=== PATIENT | female | born 1970 | race Caucasian/White ===

== ENCOUNTER 2020-11-07 05:12 | Emergency (ER) | payer BC, SELFPAY ==
[2020-11-07 05:13] VITALS: BP 154/94; PULSE 82; RESP 16; TEMP 36.6; O2SAT 97; BMI 17.4
--- NOTE | 2020-11-07 05:24 | XR_ITS ---
PROCEDURE INFORMATION: Exam: XR Right Ribs with PA Chest Exam date and time: 11/07/2020 5:24 AM Age: 50 years old Clinical indication: Injury or trauma; Other: Stretched across console of her truck and now RT rib pain; Rib area; Sprain or strain; Injury date: 11/07/2020; Injury details: Stretched across console of her truck and now having RT rib pain TECHNIQUE: Imaging protocol: XR Right ribs with PA chest. Views: 3 views COMPARISON: No relevant prior studies available. FINDINGS: Lungs: Unremarkable. No consolidation. There is no focal mass. Pleural spaces: There is no pneumothorax. There is no pleural effusion. Heart/Mediastinum: Unremarkable. No cardiomegaly. Bones/joints: ThisThere is no fracture present. IMPRESSION: 1. There is no significant traumatic injury to the chest. 2. No acute cardiac or pulmonary process.
--- NOTE | 2020-11-07 06:18 | HMH.EDGENADL ---
ED Disposition Clinical Impression: Acute costochondritis Disposition: Home, Self-Care Condition on Discharge: Good Instructions: DI for Rib Contusion Additional Instructions: pt with rib pain Prescriptions: predniSONE [Prednisone 20mg Tab] 20 mg PO BID #10 tab Transmission Status: Pending to [facility] #[id number] Ketorolac Tromethamine [Toradol 10mg tablet] 10 mg PO Q6HP PRN #10 tab MDD 40mg/day PRN Reason: Moderate To Severe Pain Transmission Status: Pending to [facility] #[id number] Referrals: Provider,Referral, [Primary Care Provider] - - Critical Care Critical Care Time: No Attestation: On 11/07/20, the high probability of a clinically significant, sudden or life threatening deterioration of the following system(s) required my full and direct attention, intervention and personal management. The time I documented below is in addition to time spent performing reported procedures but includes the following listed in this critical care notation. Medical Decision Making - Medical Records Medical records reviewed: Yes: I reviewed the patient's medical records. - Tom Inquiry Pt receiving controlled substance: No Vital Signs: 11/07/20 05:13 Temperature 97.8 F Temperature Source Oral Pulse Rate [Right] 82 Respiratory Rate 16 Blood Pressure [Right Arm] 154/94 H Blood Pressure Mean [Right Arm] 114 02 Sat by Pulse Oximetry 97 Orders (Tests/Meds): ED MEDICATIONS Discontinued Medications Generic Name Dose Route Start Last Admin Trade Name Freq PRN Reason Stop Dose Admin Ketorolac Tromethamine 60 mg 11/07/20 05:27 11/07/20 05:42 Ketorolac 60mg/2ml Vial IM 11/07/20 05:28 60 mg ONCE ONE Administration Methylprednisolone Sodium Succinate 125 mg 11/07/20 05:27 11/07/20 05:42 Methylprednisolone Sod Succ 125mg Vial IM 11/07/20 05:28 125 mg ONCE ONE Administration - Radiology Data #1 Image(s): Chest Image Reviewed: Yes I reviewed the patient's radiology image Preliminary Findings: Normal/NAD - CT Data CT Scan: Chest Time Received: 08:[address] Reviewed: Yes: I have viewed the radiologist's interpretation Preliminary Findings: Normal/NAD Medical Decision Narrative: no fx seen General Adult HPI - General Chief complaint: PAIN Stated complaint: Right rib cage pain Time Seen by Provider: 11/07/20 05:50 Mode of Arrival: Ambulatory Source of Information: Patient, Spouse, Medical Record Limitations: No Limitations Description of Symptoms (Recalled from ER Triage Doc. by RN): pt states leaned over truck console yesterday morning and felt a pop. pt c/o rt rib pain - History of Present Illness HPI narrative: pt with rt rib pain after leaning over console - hear popping - increased with mov Onset (ago): day(s) Location: chest Severity: moderate Associated symptoms: denies other symptoms Treatments prior to arrival: none - Related Data Previous Rx's Medication Instructions Recorded Ketorolac Tromethamine [Toradol 10 mg PO Q6HP PRN #10 tab MDD 11/07/20 10mg tablet] 40mg/day predniSONE [Prednisone 20mg 20 mg PO BID #10 tab 11/07/20 Tab] Allergies Allergy/AdvReac Type Severity Reaction Status Date / Time acetaminophen [From Tylenol] AdvReac Verified 11/07/20 05:27 EGGS (FOOD) AdvReac Severe ABD PAIN, Uncoded 04/19/17 14:54 BLOATING [facility] History - Hepatitis A Screen Drug use history?: No High risk sexual behaviors?: No History of sexually transmitted infection?: No Currently employed?: No Childcare worker?: No Do you have indoor plumbing?: Yes Do you have electricity?: Yes Attestation statement:: This patient has been screened for Hepatitis A risk factors. I have reviewed the patient's past medical history: Yes Comment: Seen in this emergency department 10/19/[address] head negative. Treated with intravenous Compazine, Solu-Medrol, and Zofran. Seen in this emergency de
--- NOTE | 2020-11-07 06:50 | CT_ITS ---
PROCEDURE INFORMATION: Exam: CT Chest Without Contrast; Diagnostic Exam date and time: 11/07/2020 6:50 AM Age: 50 years old Clinical indication: Pain; Right-sided; Additional info: Right anterior rib pain directly under right breast TECHNIQUE: Imaging protocol: Diagnostic computed tomography of the chest without contrast. Radiation optimization: All CT scans at this facility use at least one of these dose optimization techniques: automated exposure control; mA and/or kV adjustment per patient size (includes targeted exams where dose is matched to clinical indication); or iterative reconstruction. COMPARISON: CR XR RIBS RT MIN 3V W CXR1V 11/07/2020 5:26 AM FINDINGS: Lungs: Moderate to severe diffuse emphysematous changes. Pleural spaces: Unremarkable. No pneumothorax. No pleural effusion. Heart: Unremarkable. No cardiomegaly. No pericardial effusion. Mediastinal space: There no mediastinal hematoma. Aorta: Unremarkable. No aortic aneurysm. Lymph nodes: Unremarkable. No enlarged lymph nodes. Bones/joints: Unremarkable. No acute fracture. Soft tissues: Unremarkable. IMPRESSION: 1. There is no acute traumatic injury seen. 2. No acute cardiac or pulmonary process. 3. Moderate to severe diffuse emphysematous changes.
[2020-11-07 08:49] VITALS: BP 125/74; PULSE 78; RESP 16; TEMP 36.6; O2SAT 98
== END 2020-11-07 08:54 | disposition home or self-care (01) ==
PROVIDERS: Emergency Provider Emergency Medicine
DX: M94.0 Chondrocostal junction syndrome [Tietze] (principal); F17.210 Nicotine dependence, cigarettes, uncomplicated
CPT/HCPCS: 71101; 71250; 96372; 99281; 99282

== ENCOUNTER 2021-08-27 13:48 | Emergency (ER) | payer BC, SELFPAY ==
[2021-08-27 13:49] VITALS: BP 139/80; PULSE 83; RESP 16; TEMP 36.6; O2SAT 98; BMI 18.3
--- NOTE | 2021-08-27 14:00 | PC.NURSE ---
ANCELMO HERNANDEZ at
--- NOTE | 2021-08-27 14:05 | HMH.EDHA ---
ED Disposition Clinical Impression: Migraine Qualifiers: Migraine type: unspecified Status migrainosus presence: without status migrainosus Intractability: not intractable Qualified Code(s): G43.909 - Migraine, unspecified, not intractable, without status migrainosus Disposition: Home, Self-Care Condition on Discharge: Good Instructions: DI for Migraine Prescriptions: Prochlorperazine Maleate [Compazine 10mg tablet] 10 mg PO Q8 PRN #30 tab PRN Reason: Migraine Headache Transmission Status: Received by [email or web address] #[id number] Referrals: Provider,Referral, [Primary Care Provider] - - Critical Care Critical Care Time: No Attestation: On 08/27/21, the high probability of a clinically significant, sudden or life threatening deterioration of the following system(s) required my full and direct attention, intervention and personal management. The time I documented below is in addition to time spent performing reported procedures but includes the following listed in this critical care notation. Medical Decision Making - Medical Records Medical records reviewed: Yes: I reviewed the patient's medical records. - Tom Inquiry Pt receiving controlled substance: No Vital Signs: 08/27/21 13:49 08/27/21 14:30 08/27/21 15:13 Temperature 97.8 F 97.8 F Temperature Source Oral Pulse Rate 69 69 Pulse Rate [Right Radial] 83 Respiratory Rate 16 16 16 Blood Pressure 149/86 H 149/86 H Blood Pressure [Right Arm] 139/80 Blood Pressure Mean 107 Blood Pressure Mean [Right Arm] 99 Blood Pressure Source [Right Arm] Automatic Cuff Blood Pressure Position [Right Arm] Sitting 02 Sat by Pulse Oximetry 98 98 Oxygen Delivery Method Room Air Room Air Room Air Orders (Tests/Meds): ED MEDICATIONS Discontinued Medications Generic Name Dose Route Start Last Admin Trade Name Freq PRN Reason Stop Dose Admin Lactated Ringer's 1,000 mls @ 999 mls/hr 08/27/21 14:15 08/27/21 14:22 Lactated Ringer's 1000 Ml Bag IV 08/27/21 15:15 999 mls/hr .Q1H1M MICHAEL Administration Ketorolac Tromethamine 15 mg 08/27/21 14:03 08/27/21 14:21 Ketorolac 30mg/Ml Vial IV 08/27/21 14:04 15 mg ONCE ONE Administration Metoclopramide HCl 10 mg 08/27/21 14:03 08/27/21 14:21 Metoclopramide Hcl 10mg/2ml Vial IVP 08/27/21 14:04 10 mg ONCE ONE Administration Ondansetron HCl 8 mg 08/27/21 14:03 08/27/21 14:21 Ondansetron 4mg/2ml Vial IV 08/27/21 14:04 8 mg ONCE ONE Administration Sumatriptan Succinate 6 mg 08/27/21 14:04 08/27/21 14:22 Sumatriptan 6mg/0.5ml Vial SQ 08/27/21 14:05 6 mg ONCE ONE Administration Medical Decision Narrative: 3pm reval, appears well, esperanza po, feels better, ok with plan to f/u pcp Headache HPI - General Chief Complaint: Headache Stated Complaint: nausea, vomiting, migraine, diarrhea, chills Time Seen by Provider: 08/27/21 14:00 Mode of Arrival: Ambulatory Limitations: No Limitations Description of Symptoms (Recalled from ER Triage Doc. by RN): Pt reports migraine that she woke up with this morning. Pt reports vomitting multiple times today r/t migraine. Pt reports hx of migraines, reports pain is similar to her previous migraines. pt reports feel dehydrated. - History of Present Illness MD Complaint: migraine Onset (ago): hour(s) Onset description: gradual Location: frontal Severity: moderate Quality: throbbing Relieving factors: nothing Exacerbating factors: none Associated symptoms: nausea, vomiting - Related Data Previous Rx's Medication Instructions Recorded Prochlorperazine Maleate 10 mg PO Q8 PRN #30 tab 08/27/21 [Compazine 10mg tablet] Allergies Allergy/AdvReac Type Severity Reaction Status Date / Time acetaminophen [From Tylenol] AdvReac Verified 11/07/20 05:27 EGGS (FOOD) AdvReac Severe ABD PAIN, Uncoded 04/19/17 14:54 BLOATING H History - Hepatitis A Screen Attestation statement:: This patien
[2021-08-27 14:30] VITALS: BP 149/86; PULSE 69; RESP 16; O2SAT 98
--- NOTE | 2021-08-27 14:56 | PC.NURSE ---
pt reports feeling much better, drinking water at this time. will continue to monitor
[2021-08-27 15:13] VITALS: BP 149/86; PULSE 69; RESP 16; TEMP 36.6; O2SAT 98
== END 2021-08-27 15:14 | disposition home or self-care (01) ==
PROVIDERS: Emergency Provider Emergency Medicine
DX: G43.909 Migraine, unspecified, not intractable, without status migrainosus (principal); R11.2 Nausea with vomiting, unspecified; R19.7 Diarrhea, unspecified; F17.210 Nicotine dependence, cigarettes, uncomplicated; Z88.6 Allergy status to analgesic agent; Z88.8 Allergy status to other drugs, medicaments and biological substances
CPT/HCPCS: 96361; 96374; 96375; 99284; J2405

== ENCOUNTER → 2022-03-23 10:36 | Outpatient (CLI) | payer BC, SELFPAY ==
--- NOTE | 2022-03-23 10:44 | ECG_ITS ---
APPROVED REPORT Exam: Resting ECG HR:76 bpm ECG Measurements Heart Rate 76 AXES WY 150 P 89 QRSd 74 QRS 85 QT 353 T 57 QTc 384 Conclusion SINUS RHYTHM NORMAL ECG UNCONFIRMED REPORT Electronically signed by : Errol Lomeli MD 03/25/2022 20:16:52
[2022-03-23 11:25] LABS: Basophils # 0.1 K/mm3 (0-0.2); Basophils % 1.1 % (0.1-2.0); Eosinophils # 0.3 K/mm3 (0.0-0.4); Eosinophils % 2.8 % (0.1-12.0); Hematocrit 44.9 % (37.0-47.0); Hemoglobin 14.9 g/dL (12.2-16.2); Lymphocytes # 2.1 K/mm3 (0.7-4.5); Lymphocytes % 19.5 % (10-50); Mean Corpuscular HGB Conc 33.2 g/dL (31.8-35.4); Mean Corpuscular Hemoglobin 30.5 pg (27.0-31.2); Mean Corpuscular Volume 91.8 fl (81-99); Mean Platelet Volume 8.6 fl (7.4-10.4); Monocytes # 0.4 K/mm3 (0.1-1.0); Neutrophils # 7.8 K/mm3 (1.8-7.8); Neutrophils % 72.7 % (37.0-80.0); Platelet Count 338 K/mm3 (142-424); Red Blood Count 4.89 M/mm3 (4.20-5.40); Red Cell Distribution Width 13.2 % (11.5-17.5); White Blood Count 10.8 K/mm3 (4.8-10.8)
[2022-03-23 12:22] LABS: Alanine Aminotransferase 14 U/L (12-78); Albumin Level 4.9 g/dl (3.5-5.0); Albumin/Globulin Ratio 1.8 (1.1-1.8); Alkaline Phosphatase 141 U/L (38-126); Anion Gap 15.2 mEq/L (5-15); Aspartate Amino Transferase 22 U/L (14-36); Bilirubin,Total 0.3 mg/dl (0.2-1.3); Blood Urea Nitrogen 18 mg/dl (7-17); Calcium 9.8 mg/dl (8.4-10.2); Carbon Dioxide 30 mmol/L (22.0-30.0); Chloride 100 mmol/L (98-107); Estimated Glomerular Filt Rate 105 ml/min (>60); GFR (African American) 128 ML/MIN (>60); Globulin 2.7 g/dL (1.3-3.2); Glucose 83 mg/dl (74-100); Potassium 4.2 mmoL/L (3.5-5.1); Sodium 141 mmol/L (136-145); Total Protein,Serum 7.6 g/dl (6.3-8.2)
== END ==
LOC: LAB 10:37
PROVIDERS: PCP Family Medicine; Visit Provider Student in an Organized Health Care Education/Training Program
DX: Z01.818 Encounter for other preprocedural examination (principal); D49.89 Neoplasm of unspecified behavior of other specified sites
CPT/HCPCS: 36415; 80053; 85025; 93005

== ENCOUNTER 2022-04-21 06:46 | Day surgery (SDC) | payer BC, SELFPAY ==
[2022-04-19 08:30] VITALS: BMI 16.6
[2022-04-21 06:56] VITALS: BP 125/81; PULSE 81; RESP 18; TEMP 36.2; O2SAT 97
--- NOTE | 2022-04-21 07:32 | EXP.ANES.CKL ---
[facility] Disclaimer: The information contained in this section may have been updated after the patient was seen, as this information can be updated by other users. Medical History Cyst Malignant neoplasm skin of nose Migraine Neoplasm of face Surgical History History of cholecystectomy History of dental surgery Family History Sister Skin cancer Social History Smoking Status: Current every day smoker tobacco type: cigarettes packs per day: 1 alcohol intake: never substance use type: marijuana current occupational status: employed Travel in the last 8 weeks: None [facility] Anesthesia Checklist Patient Identification Patient Identification: Arm Band and Verbal (Name & ) Structural Data Admitted From: Home Planned Operative Procedure/s: Excision of facial lesion Consent for Planned Operative Procedure(s) Verified: Yes Verified Documents: Surgical Consent NPO Status Verified Time NPO: 23:00 Additional verifications Anesthesia Reactions: No Hx Blood Transfusions: No Blood Transfusion Reaction: No Airway Assessment C-Spine Mobility Assessed: Yes TMJ Mobility Assessed: Yes Dentition: Edentulous Neurological Assessment Level of Consciousness: Awake, Alert and Appropriate Anesthesia Plan Anesthesia Risk discussed: Yes ASA Class: II Anesthesia Type: MAC
--- NOTE | 2022-04-21 09:08 | P.OP_ITS ---
Date of procedure: 04/21/22 Pre-op Diagnosis:: left facial mass, right neck skin lesion Post-op Diagnosis:: same Procedure performed:: excision left facial mass, right neck skin lesion Surgeon:: Pola Engel MD IN[employer]IPPER:: Reid Mathias Anesthesia: MAC Estimated blood loss (mL): 2 Operative findings:: left facial cyst, right neck skin lesion Operative note:: The patient was brought to the OR, laid in the supine position, and MAC anesthesia was induced. Lidocaine with epinephrine 1-100,000 less than 3 cc was injected over her left facial cyst as well as the right neck skin lesion. She was prepped and draped in usual fashion. First starting with the left facial skin lesion a small approximately 1 cm incision was made over top of what felt to be a sebaceous cyst. I then dissected through the skin and was able to identify the cystic capsule. I then bluntly dissected around the capsule and excised the mass in entirety. It was consistent with a sebaceous cyst. Wound was then irrigated out and closed in 2 layers. I then went to the right neck where she had approximately 2 cm x 1 cm skin lesion. I ellipsed around the skin lesion and marked it with a stitch anterior. The lesion did not appear to be extending through the dermis and into the subcutaneous tissue. The wound was then irrigated out again and then closed in 2 layers. Dermabond was then applied over both incisions and she was turned back over to anesthesia to be awoken. Condition: stable Disposition: same day Complications:: none
[2022-04-21 09:09] VITALS: BP 123/87; PULSE 75; RESP 18; TEMP 36.1; O2SAT 96
[2022-04-21 09:19] VITALS: BP 125/69; PULSE 73; RESP 18; O2SAT 94
[2022-04-21 09:29] VITALS: BP 114/76; PULSE 72; RESP 18; O2SAT 95
[2022-04-21 09:39] VITALS: BP 113/78; PULSE 72; RESP 18; O2SAT 95
== END 2022-04-21 09:39 | disposition home or self-care (01) ==
PROVIDERS: PCP Family Medicine; Visit Provider Student in an Organized Health Care Education/Training Program
PROC: (CPT 11442; principal; 2022-04-21 08:30)
DX: L72.0 Epidermal cyst (principal); C44.41 Basal cell carcinoma of skin of scalp and neck; F17.210 Nicotine dependence, cigarettes, uncomplicated; Z79.899 Other long term (current) drug therapy
CPT/HCPCS: 11442; 12051; 11623; 12041; 88304; 88305; 96374; J2405

== ENCOUNTER 2024-04-03 19:42 | Emergency (ER) | payer BC, SELFPAY ==
[2024-04-03 19:43] VITALS: BP 136/81; PULSE 95; RESP 16; TEMP 36.8; O2SAT 99; BMI 16.6
--- OUTSIDE RECORDS SUMMARY | 2024-04-03 19:48 | XMS_ITS | Encounter Summary ---
Author Organization Healthcare Address [address] [place] [id number] Care Team Providers Care Crystal Inspector Name Role Phone Unavailable Primary Care Provider Unavailabl e Encounter Details Date Type Department Care Team (Late st Contact Info) Description 01/16/2014 [facility] Vitals Encounter [facility] [address] [place] [address] Provider, MD Rhonda [address] [place] [id number] Social History Tobacco Use Types Packs/Day Years Used Date Smoking Tobacco: Never Assessed Comments Unknown Sex and Gender Information Value Date Recorded Sex Assigned at Not on file Legal Sex Female 7:59 PM EDT Gender Identity Not on file Sexual Orientation Not on file documented as of this encounter Last Filed Vital Signs Vital Sign Reading Time Taken Comments Blood Pressure - - Pulse - - Temperature - - Respiratory Rate - - Oxygen Saturation - - Inhaled Oxygen Concentration - - Weight 41.7 kg (92 lb) 01/16/2014 1:50 PM EDT Height 165.1 cm (5' 5 ) 01/16/2014 1:50 PM EDT Body Mass Index 15.31 01/16/2014 1:50 PM EDT documented in this encounter Plan of Treatment Not on file documented as of this encounter Visit Diagnoses Not on filedocumented in this encounter
--- OUTSIDE RECORDS SUMMARY | 2024-04-03 19:48 | XMS_ITS | Clinical Summary ---
Author Organization Healthcare Address [address] [place] [address] Care Team Providers Care Mail Technician Name Role Phone Laci Sanchez MD Primary Care Provider [phone] Family History Medical History Relation Name Comments Depression Mother Breast cancer Other Depression Sister 1 Leukemia Sister 2 Lymphoma Sister 3 Relation Name Status Comments Mother Other Sister 1 Sister 2 Sister 3 Social History Tobacco Use Types Packs/Day Years Used Date Smoking Tobacco: Every Day Alcohol Use Standard Drinks/Week Comments No 0 (1 standard drink = 0.6 oz pur e alcohol) Comments Unknown Sex and Gender Information Value Date Recorded Sex Assigned at Not on file Legal Sex Female 7:59 PM EDT Gender Identity Not on file Sexual Orientation Not on file Last Filed Vital Signs Vital Sign Reading Time Taken Comments Blood Pressure - - Pulse - - Temperature - - Respiratory Rate - - Oxygen Saturation - - Inhaled Oxygen Concentration - - Weight 41.7 kg (92 lb) 01/16/2014 1:50 PM EDT Height 165.1 cm (5' 5 ) 01/16/2014 1:50 PM EDT Body Mass Index 15.31 01/16/2014 1:50 PM EDT Plan of Treatment Not on file Care Teams Mail Technician Relationship Specialty Start Date End Date Laci Sanchez MD [id number] [place] [id number] PCP - General 09/12/20
--- OUTSIDE RECORDS SUMMARY | 2024-04-03 19:49 | XMS_ITS | Encounter Summary ---
Author Organization Healthcare Address [address] [place] [id number] Care Team Providers Care Utilities Manager Name Role Phone Unavailable Primary Care Provider Unavailabl e Encounter Details Date Type Department Care Team (Late st Contact Info) Description 11/14/2013 [facility] Vitals En[facility] [address] [place] [address] Provider, MD Rhonda [address] [place] [id number] Social History Tobacco Use Types Packs/Day [...] - Inhaled Oxygen Concentration - - Weight 41.5 kg (91 lb 7.9 oz) 11/14/2013 12:05 P M EDT Height 165.1 cm (5' 5 ) 11/14/2013 12:05 PM EDT Body Mass Index 15.22 11/14/2013 12:05 PM EDT documented in this encounter Plan of Treatment Not on file documented as of this encounter Visit Diagnoses Not on filedocumented in this encounter
--- NOTE | 2024-04-03 20:02 | XR_ITS ---
PROCEDURE INFORMATION: Exam: XR Chest Exam date and time: 04/03/2024 8:03 PM Age: 54 years old Clinical indication: Pain; Chest pressure; Additional info: Rib pain TECHNIQUE: Imaging protocol: Radiologic exam of the chest. Views: 2 views. COMPARISON: CT CHEST WO CON 11/07/2020 7:00 AM FINDINGS: Lungs: Unremarkable. No consolidation. Pleural spaces: Unremarkable. No pleural effusion. No pneumothorax. Heart/Mediastinum: Unremarkable. No cardiomegaly. Bones/joints: Mild thoracic scoliosis. Partially visualized lumbar scoliosis. Bones are otherwise unremarkable. IMPRESSION: No acute disease
--- NOTE | 2024-04-03 20:14 | PC.NURSE ---
pt to x ray at this time
--- NOTE | 2024-04-03 20:27 | ED_ITS ---
Discharge Plan Disposition Patient Disposition: Home, Self-Care Condition: Good Prescriptions Prescriptions: New ketorolac 10 mg tablet 10 mg PO Q8H PRN (Reason: pain) 3 Days Qty: 12 0RF methocarbamol 750 mg tablet 750 mg PO Q8H PRN (Reason: pain) Qty: 20 0RF No Action prochlorperazine maleate 10 mg tablet 10 mg PO Q8 PRN (Reason: Migraine Headache) Qty: 30 10RF Referrals Follow up/Referrals: Syed Naylor DO [Staff Physician] - See instructions Provider,Referral, [Primary Care Provider] - See instructions Activity Restrictions/Add. Instructions Additional Instructions/Restrictions: You were evaluated in the emergency department today. You expressed concerns over cancer, however it is difficult to exclude cancer and an emergency department visit. This does not substitute for routine outpatient primary care and screenings. Please follow-up closely with your primary care provider to establish for care and to help schedule routine screenings for cancer as an outpatient. Take Tylenol at home every 4-6 hours as needed for pain. I am also prescribing you a mild muscle relaxer as well as an anti-inflammatory to take as needed for pain. Return to the emergency department for new or worsening symptoms. Clinical Impressions Clinical Impression: Rib pain on right side Stand Alone Forms Stand Alone Forms: Work/School Release Instructions Patient Instructions: DI for Costochondritis, DI for Acute Pain -- Adult Print Language Print Language: Scottish Discharge ED Provider: Antoinette Jorgensen General Adult HPI General Chief complaint: PAIN Stated complaint: Right rib pain Time Seen by Provider: 04/03/24 19:47 Mode of Arrival: Ambulatory Source of Information: Patient Limitations: No Limitations Description of Symptoms (Recalled from ER Triage Doc. by RN): Ptt o ED with 33year hx of right rib pain, worsening this year, and not being able to sleep d/t the pain for the past 2 nights. Pt reports a burning pain in the middle of her back, her right ribs, and right breast. No pain with inspiration, no SOA, no rash. History of Present Illness HPI narrative: This patient is a 54-year-old female who denies significant past medical history presenting to the emergency department for evaluation concern for right rib pain. Patient reports that she has had rib pain intermittently for quite some time now. She notes that whenever she was over 30 years ago her baby pushed out on her ribs, and ever since then if she does a lot of strenuous activity her ribs can get aggravated and cause pain and issues. She states that it feels like a popping of her ribs and like her ribs flip. She notes that usually couple days of rest improves her symptoms and then she is able to return to normal activity, but for the last do not she has not been able to sleep secondary to the pain. She also notes that she has a burning in this region which is new. It radiates from her mid back under her right breast. No true chest pain or shortness of breath. She notes that it all feels rib and musculoskeletal, as it is worse with position and movement. She notes that it is especially worse when she moves her right arm. No recent falls or trauma. Related Data Previous Rx's ?Medication ?Instructions ?Recorded prochlorperazine maleate 10 mg 10 mg PO Q8 PRN Migraine Headache 03/18/22 tablet #30 tabs ketorolac 10 mg tablet 10 mg PO Q8H PRN pain 3 days #12 04/03/24 tabs methocarbamol 750 mg tablet 750 mg PO Q8H PRN pain #20 tabs 04/03/24 Allergies Allergy/AdvReac Type Severity Reaction Status Date / Time acetaminophen (From Tylenol) AdvReac Verified 04/19/22 08:23 EGGS (FOOD) AdvReac Severe ABD PAIN, Uncoded 03/23/22 10:03 [facility] Dis[facility]: The information contained in this section may have been updated after the patient was seen, as this information can be updated by other users. Medical History Cyst Malignant neoplasm skin of nose Neoplasm of face Migraine Surgical History History of dental surgery History of cholecystectomy Family History Sister Skin cancer Social History Smoking Status: Current every day smoker tobacco type: cigarettes packs per day: 1 alcohol intake: never substance use type: marijuana current occupational status: employed Travel in the last 8 weeks: None Other Medical History Have you received the Flu Vaccine for this season: No Have you received the Pneumonia Vaccine: No ROS Obtained: Yes All systems reviewed & no additional complaints except as documented Physical Exam General General appearance: alert and in no apparent distress Head Head exam: atraumatic and normocephalic Eye Eye exam: Present normal appearance, PERRL and EOMI ENT ENT exam: Present normal exam, normal oropharynx, mucous membranes moist and normal external ear exam Neck Neck exam: Present normal inspection, full ROM and trachea midline; Absent tenderness Chest Chest inspection: Present symmetric chest wall rise and tenderness (R mid/lower lateral ribs); Absent rash Respiratory Respiratory exam: Present normal lung sounds bilaterally; Absent respiratory distress, wheezes, stridor or accessory muscle use Cardiovascular Cardiovascular exam: Present regular rate and normal rhythm Abdominal Exam Abdominal exam: Present soft; Absent distention, tenderness or guarding Extremities Exam Extremities exam: Present normal inspection, full ROM and normal capillary refill; Absent tenderness or edema Back Exam Back exam: Present full ROM Back 1 view image: 2 1. tenderness to palpation Comment: No rashes or lesions. No midline vertebral tenderness Neurological Exam Neurological exam: Present alert, oriented X3, CN II-XII intact and normal gait; Absent motor sensory deficit Psychiatric Psychiatric exam: Present normal affect and normal mood Skin Skin exam: Present warm and dry Medical Decision Making Medical Records Medical records reviewed: Yes I reviewed the patient's medical records. Screening: Per USPSTF and CDC recommendations, given the prevalence of disease in our region, it is our hospital?s policy to screen for HIV and viral Hepatitis for all patients aged 18 and over and those with ongoing risk factors. Tom Inquiry Pt receiving controlled substance: No Vital Signs: 04/03/24 19:43 04/03/24 21:32 Temperature 98.3 F 98.3 F Temperature Source Oral Oral Pulse Rate 80 Pulse Rate [Left Radial] 95 H Respiratory Rate 16 16 Blood Pressure 122/79 Blood Pressure [Right Arm] 136/81 Blood Pressure Mean [Right Arm] 99 Blood Pressure Source Automatic Cuff Blood Pressure Source [Right Arm] Automatic Cuff Blood Pressure Position Sitting Blood Pressure Position [Right Arm] Sitting 02 Sat by Pulse Oximetry 99 Oxygen Delivery Method Room Air Room Air Lab Data Lab results reviewed: Yes I reviewed the patient's lab results. Orders (Tests/Meds): ED MEDICATIONS Discontinued Medications Generic Name Dose Route Start Last Admin Trade Name Freq PRN Reason Stop Dose Admin Ketorolac Tromethamine 30 mg 04/03/24 20:27 04/03/24 21:01 Ketorolac 30mg/Ml Vial IM 04/03/24 20:28 30 mg ONCE ONE Administration Lidocaine 1 each 04/03/24 20:27 04/03/24 21:01 Lidocaine 5% Transdermal Patch TP 04/03/24 20:28 1 each ONCE ONE Administration Methocarbamol 1,000 mg 04/03/24 20:27 04/03/24 21:01 Methocarbamol 500mg Tablet PO 04/03/24 20:28 1,000 mg ONCE ONE Administration ORDERS Category Date Time Status Chest XR 2 view (NOT portable) [XR chest 2V] Stat Exams 04/03/24 20:02 Completed Medical Decision Narrative: In summary, this patient is a 54-year-old female presenting to the Emergency Department for evaluation of right rib pain that is worse with movement and right upper extremity use. Differential diagnoses considered include but are not limited to musculoskeletal strain/sprain, disc herniation, scoliosis, shingles. Ruling out the most morbid conditions drove assessment. I reviewed patient's past medical records and noted previous evaluation for similar complaints back in October 2020. On exam, the patient is sitting upright in no acute distress with normal vital signs on cardiac telemetry. Her pain is reproducible with movement and palpation, so I feel is likely musculoskeletal. I considered shingles, especially since she describes it as burning, however I do not note any rash or other concerns. I advised her that sometimes shingles can start out with burning nerve type pain prior to any rash, but she states she does not think it is shingles because it is only there when she moves her arm. It also is less likely to be something like this given the chronicity and recurrent nature of symptoms. Workup included two-view chest x-ray. Patient was given IM Toradol, oral Robaxin, topical Lidoderm patch for symptomatic improvement of pain. I independently interpreted x-ray prior to the radiologist read and noted no obvious acute rib deformity, no pneumothorax. Please see their read for final interpretation. On reassessment, the patient is resting comfortably and continues to be in no distress. Exam continues to be reassuring. Patient states that her biggest concern is that she could have cancer. She states that she intermittently has breast pain and has family history of cancer. I advised her that emergency department is not a replacement for cancer screenings as an outpatient, and I advise that she follow-up very closely with the primary care provider for assistance with scheduling routine cancer screenings and continued monitoring. She expressed understanding agreement. Ultimately, I feel she is appropriate for discharge. She is given prescriptions for Toradol, Robaxin. She was given strict return precautions. Critical Care Critical Care Time Critical Care Time: No
[2024-04-03] MEDS: KETOROLAC 30MG/ML VIAL 30 MG IM (21:01)
[2024-04-03] MEDS: METHOCARBAMOL 500MG TABLET 1000 MG PO (21:01)
[2024-04-03] MEDS: LIDOCAINE 5% TRANSDERMAL PATCH 1 EACH TP (21:01)
[2024-04-03 21:32] VITALS: BP 122/79; PULSE 80; RESP 16; TEMP 36.8; O2SAT 98
== END 2024-04-03 21:34 | disposition home or self-care (01) ==
PROVIDERS: Emergency Provider Emergency Medicine
DX: R07.81 Pleurodynia (principal); R07.82 Intercostal pain; M54.9 Dorsalgia, unspecified
CPT/HCPCS: 71046; 96372; 99283; J1885

== ENCOUNTER 2024-04-12 14:07 | Outpatient (CLI) | payer BC, SELFPAY ==
[2024-04-12 13:03] LABS: Basophils # 0.1 K/mm3 (0-0.2); Basophils % 0.9 % (0.1-2.0); Eosinophils # 0.5 K/mm3 (0.0-0.4); Eosinophils % 6.9 % (0.1-12.0); Hematocrit 43.9 % (37.0-47.0); Hemoglobin 14.2 g/dL (12.2-16.2); Lymphocytes % 26.1 % (10-50); Mean Corpuscular HGB Conc 32.3 g/dL (31.8-35.4); Mean Corpuscular Volume 89.7 fl (81-99); Mean Platelet Volume 9.3 fl (7.4-10.4); Monocytes # 0.5 K/mm3 (0.1-1.0); Neutrophils # 4.6 K/mm3 (1.8-7.8); Neutrophils % 60.1 % (37.0-80.0); Platelet Count 261 K/mm3 (142-424); Red Blood Count 4.89 M/mm3 (4.20-5.40); Red Cell Distribution Width 13.2 % (11.5-17.5); White Blood Count 7.6 K/mm3 (4.8-10.8)
[2024-04-12 13:25] LABS: Alanine Aminotransferase 24 U/L (12-78); Albumin Level 4.5 g/dl (3.5-5.0); Alkaline Phosphatase 92 U/L (38-126); Anion Gap 9.7 mEq/L (5-15); Aspartate Amino Transferase 30 U/L (14-36); Bilirubin,Total 0.4 mg/dl (0.2-1.3); Blood Urea Nitrogen 19 mg/dl (7-17); Calcium 9.2 mg/dl (8.4-10.2); Carbon Dioxide 27 mmol/L (22.0-30.0); Chloride 105 mmol/L (98-107); Estimated Glomerular Filt Rate 88 ml/min (>60); GFR (African American) 106 ML/MIN (>60); Globulin 2.3 g/dL (1.3-3.2); Glucose 84 mg/dl (74-100); Potassium 4.7 mmoL/L (3.5-5.1); Sodium 137 mmol/L (136-145); Total Protein,Serum 6.8 g/dl (6.3-8.2)
[2024-04-12 13:41] LABS: Hemoglobin A1C 4.7 % (4.0-6.0)
[2024-04-12 13:42] LABS: 25-OH Vitamin D, Total 14.5 ng/mL (30-100)
[2024-04-12 13:56] LABS: Thyroid Stimulating Hormone 0.69 uIU/mL (0.465-4.68)
[2024-04-12 16:48] LABS: Free T4 (Free Thyroxine) 1.05 ng/dl (0.78-2.19)
== END 2024-04-12 23:59 | disposition home or self-care (01) ==
LOC: LAB.DROPOF 14:08
PROVIDERS: PCP Internal Medicine; Visit Provider Internal Medicine
DX: Z00.00 Encounter for general adult medical examination without abnormal findings (principal); Z13.1 Encounter for screening for diabetes mellitus; Z13.29 Encounter for screening for other suspected endocrine disorder; Z13.21 Encounter for screening for nutritional disorder
CPT/HCPCS: 80050; 80053; 82306; 83036; 84439; 84443; 85025

== ENCOUNTER 2024-05-14 08:59 | Outpatient (CLI) | payer BC, SELFPAY ==
--- NOTE | 2024-05-14 09:01 | CT_ITS ---
FINAL REPORT CLINICAL HISTORY: lung cancer screening CURRENT SMOKER 1PPD X36 YEARS COMPARISON: Report available CT chest 11/07/2020 FINDINGS: CT CHEST LOW DOSE SCREENING HISTORY: Screening exam for lung cancer. 51-year-old female, current smoker, 36 pack year smoking history DOSE: CTDIvol: 2.90 mGy, DLP: 107.59 mGy*cm COMPARISON: Report from chest CT 11/07/2020. TECHNIQUE: Axial CT without IV contrast administration using low dose protocol. This study was performed with techniques to keep radiation doses as low as reasonably achievable, (ALARA). Individualized dose reduction techniques using automated exposure control or adjustment of mA and/or kV according to the patient's size were employed. FINDINGS: No acute lung disease is present . There are scattered nodules, some of which are calcified, mostly consistent in appearance with granulomas. The vast majority are less than 3 mm in size. The largest nodule is adjacent to the dome of the left hemidiaphragm, measuring 5 x 4 mm in size, best seen on image #66 of series 3. Moderate changes of emphysema are noted. No pleural or pericardial effusion is seen . No adenopathy or mass lesion is present . IMPRESSION: 1. Scattered nodules, most consistent with granulomas. The largest nodule measures 5 x 4 mm, adjacent to the dome of the left diaphragm. LUNG RADS CATEGORY 2 RECOMMENDATION: 12 month LDCT follow up Reviewed, Interpreted and Dictated by Liban Stout MD Transcribed by Margarette Mcarthur Authenticated and [facility]
--- NOTE | 2024-05-14 09:04 | XR_ITS ---
FINAL REPORT TECHNIQUE: Bone densitometry calculations of the lumbar spine and left hip were obtained. CLINICAL HISTORY: High risk osteoporosis screening COMPARISON: None FINDINGS: Using L1-4, the bone mineral density of the spine is 0.684 g/cm2, corresponding to T-score of -3.3. Using the left hip, the bone mineral density of the femoral neck is 0.562 g/cm2, corresponding to a T-score of -3.1. Using the right hip, the bone mineral density of the femoral neck is 0.675 g/cm?, corresponding to a T-score of -2.2. NOTE: T-score: Standard deviation compared with peak bone mass of young adult mean. *Following the recommendations of the International Society of Bone densitometry, classification of hip BMD is based on the lower of two T-scores; total hip or femoral neck. IMPRESSION: Diminished bone mineral density of the lumbar spine and left hip consistent with osteoporosis. Reviewed, Interpreted and Dictated by Liban Stout MD Transcribed by Margarette Mcarthur Authenticated and . [facility]
== END 2024-05-14 23:59 | disposition home or self-care (01) ==
LOC: RAD 09:01
PROVIDERS: PCP Internal Medicine; Visit Provider Internal Medicine
DX: M85.89 Other specified disorders of bone density and structure, multiple sites (principal); Z13.820 Encounter for screening for osteoporosis; Z91.89 Other specified personal risk factors, not elsewhere classified; F17.210 Nicotine dependence, cigarettes, uncomplicated
CPT/HCPCS: 71271; 77080

== ENCOUNTER 2024-09-19 07:43 | Outpatient (RCR) | payer BC, SELFPAY ==
--- NOTE | 2024-09-19 10:39 | HMH.PTOPEV ---
PT Outpatient Evaluation Rehab PT Outpatient Evaluation Start: 09/19/24 07:57 Freq: Status: Active Protocol: Document 09/19/24 08:00 MARLENY (Rec: 09/19/24 09:56 MARLENY [id number]) E-signed By Antoinette Sadler, PT Outpatient Therapy Subjective History Subjective History Pt is a 54 y/o female referred to PT for thoracic/back/rib pain. Pt very anxious and is poor historian. Pt reports chronic right anterior rib pop with onset in 2020 after reaching over her console and hearing a pop that was painful. Pt reports pain has been coming and going ever since. Pt reports an exacerbation in March- April of last year without known trauma or injury. Pt had a chest xray on 04/03/24 with impression of No acute disease. 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 Pt reports pain of the R shoulder, upper-mid thoracic spine, under the right shoulder blade and right anterolateral ribs that usually occur the day following increased activity, states she is very active. Pt reports aggravating factors of repetitive motions such as pushing/pulling with sweeping and burning pain when doing dishes. Pt also reports sharp right sided rib pain and shoulder pain in the morning time after sleeping. Pt states she usually sleeps on her stomach but has been unable to lately due to discomfort of the ribs and shoulder in this position. Pt reports she had once instance of R nipple pain described as a dull ache. Pt denies numbness/tingling or rash. Pt denies fever, nausea, vomiting or diarrhea. Pt reports chronic history of migraines, no new onset of headaches. Pt denies pain with deep breathing, lifting, or sneezing/coughing. Pt states yesterday she starting having pain radiate to the left ribs as well that was brief in nature. R handed Medical History: Cyst, Malignant neoplasm skin of nose, Neoplasm of face, Anxiety, OCD, Migraine, 40 year smoking history, marijuana use 3x/day Family history: twin sister with history of lymphoma per pt Vitals at rest: SpO2: 97% on RA, HR 85 bpm, BP 106/78 mmHg taken seated in L arm New diagnosis of cancer in past 12 No months? Chief Complaint Pain Symptom Type Ache,Throb,Sharp,Burning Symptoms Relieved By Rest/Positioning,Ice,Brace/ Support Symptoms Aggravated By Physical Activity Current Functional Limitations Housework,Sleeping Symptom Description Constant but Variable Level of pain today (0-10) 8 Pain scale - at its best (0-10) 3 Pain scale - at its worst (0-10) 10 Shoulder/Elbow Eval Shoulder Objective Measurements Palpation Tenderness Shoulder Palpation Findings Tenderness Shoulder Palpation Overall Comment 1/ TTP scapular mm: rhomboids, teres major/minor, latissimus dorsi Posture Shoulder Posture Sitting Position (L) Rounded,(R) Rounded,(L) Forward,(R) Forward Shoulder Posture Standing Position (L) Rounded,(R) Rounded,(L) Forward,(R) Forward Scapular Posture Standing Position (R) Winged Shoulder ROM Right Shoulder Abduction Active Range of 165 Motion (degrees) Shoulder Flexion Active Range of Motion 160 (degrees) Query Text: Shoulder MMT Lower Trapezius Strength Grade 4- Good- Middle Trapezius Strength Grade 4- Good- Rhomboids Strength Grade 4- Good- Serratus Anterior Strength Grade 4- Good- Upper Trapezius/Levator Scapulae 4- Good- Shoulder Abduction Strength Grade 4- Good- Shoulder Extension Strength Grade 4- Good- Shoulder Flexion Strength Grade 4- Good- Elbow Objective Measurements Lumbopelvic Eval Palapation tenderness bilateral thoracic spinal tenderness Yes: T4,5,6,7 with decreased mobility noted paraspinal tenderness Yes: R thoracic Lumbar/Sacral Palpation Findings Tenderness Lumbar/Sacral Palpation Overall Comment 2/4 TTP Range of Motion Lumbar Spine Active Flexion Range of 90 Motion (degrees) Lumbar Spine Active Extension Range of 15 Motion (degrees) Left Lumbar Spine Lateral Flexion Active 15 Range of Motion (degrees) Right Lumbar Spine Lateral Flexion 15 Active Range of Motion (degrees) Altered Sensation Bilateral Comment WNL Oswestry Index Section 1 Pain Intensity The pain comes and goes and is severe Section 2 Personal Care (Washing,Dresing) change my way of washing or dressing in order to avoid pain Section 3 Lifting I can lift heavy weights, but it gives me extra pain Section 4 Walking I have no pain when walking Section 5 Sitting I can sit in my favorite chair for as long as I like Section 6 Standing I can stand as long as I want without pain Section 7 Sleeping Because of my pain, my normal night's sleep is less than 4 hours Section 8 Social Life Pain has no significant effect on my social life apart from limiting Section 9 Traveling I get no pain when traveling Section 10 Changing Degreee of Pain My pain is gradually getting worse Score and Risk Level Oswestry Sc 15 Oswestry Risk Level Moderate Disability Outpatient Therapy Assessment Impairments Problems/Impairmments Palpation Tenderness,Impaired Range of Motion,Impaired Strength,Impaired Household Care,Subjective C/O Pain, Impaired Self Care/Self Management Prognosis Rehab Potential Good Clinical Impression Consistent with Diagnosis Yes Consistent with possible thoracic radiculopathy Additional details: Also: M54.6 pain in the thoracic spine; R07.89 rib pain consider thoracic spine MRI to r/o more serious conditions Short Term Goals Number of Weeks 3 Decrease Subjective C/O Pain Yes: Improve pain at worst to 8/10 to improve overall QOL Improve Self Care/Self Management Yes Patient to be Ind w/ HEP Yes Care Home Goals Number of Weeks 6 Decreased Palpation Tenderness Yes Increase Range of Motion Yes: Improve R shoulder AROM to WNL Increase Strength Yes: RUE/scapular strength to 4-4+/5 grossly to assist with function Improve Ability For Household Care Yes: without pain to assist with ADLs Improve Oswestry Score Yes: Improve score to 10 or less to improve overall QOL Decrease Subjective C/O Pain Yes: Improve pain at worst to 6/10 to improve overall QOL Outpatient Therapy Plan of Care Treatment Plan May Include Therapeutic Exercise Including Home Yes Exercise Program Manual Therapy Techniques Yes Neuromuscular Re-education Yes Therapeutic Activities to Return to Yes Previous Functional/Work Level ADL/Self Care Education Yes Mechanical Traction Yes Dry Needling Yes Thermal Modalities Yes Electrical Stimulation Yes Ultrasound/Phonophoresis Yes Iontophoresis Yes Vasopneumatic Compression Pump Yes Massage Yes Eval/Re-Eval Yes Frequency Times per week 2 Duration Number of Weeks 4-6 Addendums This patient is a candidate for social No or vocational rehab? Patient/Guardian verbally acknowledges Yes understanding of treatment program and consents to further treatment? Patient/Guardian verbally acknowledges Yes understanding of diagnosis, prognosis and goals for treatment? Eval Complexity PT Charges 83198 - Low Complexity PHYSICIAN CERTIFICATION: I certify the specified therapy services for Nikki Nazario are required, authorized, and reviewed every 30 days.
== END 2024-09-19 23:59 | disposition home or self-care (01) ==
LOC: PT 07:43
PROVIDERS: PCP Internal Medicine; Visit Provider Internal Medicine
DX: R07.81 Pleurodynia (principal)
CPT/HCPCS: 97163